=== PATIENT | female | born 1975 | race Caucasian/White ===

== ENCOUNTER → 2024-01-23 18:57 | Outpatient (REF) | payer BC, SELFPAY | LOC: MRI 18:57 | PROVIDERS: ATTENDING PHYSICIAN Psychiatry & Neurology Neurology; FAMILY PHYSICIAN Physician Assistant Medical | DX: G35 Multiple sclerosis (principal) | CPT/HCPCS: 70551; 72141 ==

== ENCOUNTER 2025-03-23 14:42 | Emergency (ER) | payer OTHER, SELFPAY ==
[2025-03-23 14:47] VITALS: BP 222/124
[2025-03-23] MEDS: DILAUDID 1 MG IV (15:30)
[2025-03-23] MEDS: DILAUDID 0.5 MG IM ×2 (16:20→16:58)
--- NOTE | 2025-03-23 16:43 | ED.GENMED ---
History of Present Illness
<Russell Kenny PA-C - Last Filed: 03/24/25 11:47>
General
Chief Complaint: Fall
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
Time Seen by Provider: 03/23/25 15:23
History of Present Illness
History of Present Illness:
49-year-old female with past medical history of MS, hypertension hyperlipidemia presenting to the emergency department for evaluation of severe pain and deformity to her right upper extremity after she slipped and fell and tried to catch herself on
the railing but her arm got caught in between the railing post and felt a snap in her upper arm describing it as if she has bones crunching in her arm. She denies any other injuries. Denies any focal weakness or numbness. No headaches, no LOC, no
vomiting or visual changes. Patient is not on any anticoagulant medication. She does not believe any medication was provided prior to arrival.
Past History
<Russell Kenny PA-C - Last Filed: 03/24/25 11:47>
Past History
ED Past Medical History: HTN, Hypercholesterolemia and Other (MS)
ED Past Surgical History: Cholecystectomy
Social History
Tobacco: Non-smoker
Alcohol: None
Drug: None
Personal:
Living: with family
Review of Systems
<Russell Kenny PA-C - Last Filed: 03/24/25 11:47>
Review of Systems
All Other Systems: ROS reviewed and negative except as documented in HPI and ROS
Phy Exam
<Russell Kenny PA-C - Last Filed: 03/24/25 11:47>
Physical Exam
Physical Exam:
GENERAL: Alert , appears in severe pain, difficult time sitting still
EYE: conjunctiva clear
Head: Normocephalic atraumatic
NECK: Supple,
ENT: mmm.
LUNGS: no acute respiratory distress
NEUROLOGICAL: Alert and oriented
SKIN: Warm and dry, skin intact.
MUSCULOSKELETAL: Patient has an easily palpable radial pulse. Cap refill less than 2 seconds and sensation is grossly intact to light touch of the right upper extremity. She does allow for range of motion of all digits and wrist but will not allow
for range of motion of her elbow or shoulder. The mid humeral region is firm but compartments are otherwise soft.
PSYCH: Normal and appropriate interaction.
Scores
<Russell Kenny PA-C - Last Filed: 03/24/25 11:47>
Heart Failure Risk
Heart Failure Risk Score: Not Applicable
Heart Score for Chest Pain Patients
STEMI patient?: Not applicable
Withdrawal Assessment of Alcohol
Withdrawal Assessment Completed?: Not applicable
Course
<Russell Kenny PA-C - Last Filed: 03/24/25 11:47>
Orders/Labs/Results
Orders:
Orders
03/23/25 15:27
HYDROmorphone [Dilaudid] 1 mg IV NOW STA
CR Elbow - Right Min 2 View Urgent
Reason For Exam: fall, deformity
CR Humerus - Right Min 2 View* Urgent
Comment:
Reason For Exam: fall, deformity
CR Shoulder, Trauma - Right Urgent
Comment:
Reason For Exam: fall, deformity
03/23/25 16:09
Sling Right-Treatment ONCE
03/23/25 16:17
HYDROmorphone [Dilaudid] 0.5 mg IM NOW STA
03/23/25 16:51
HYDROmorphone [Dilaudid] 0.5 mg IV NOW STA
03/23/25 16:52
HYDROmorphone [Dilaudid] 0.5 mg IM NOW STA
Vital Signs
Initial and Last Documented VS:
Initial Vital Signs
Temp Pulse Resp BP Pulse Ox
98 F 78 16 222/124 97
03/23/25 14:47 12/14/25 14:47 03/23/25 14:47 03/23/25 14:47 03/23/25 14:47
Last Documented Vital Signs
Temp Pulse Resp BP Pulse Ox
98 F 76 18 149/97 97
03/23/25 14:47 03/23/25 17:01 03/23/25 17:01 03/23/25 17:01 03/23/25 17:01
<Gamaliel Sylvester MD - Last Filed: 03/23/25 16:49>
Orders/Labs/Results
Orders:
Orders
03/23/25 15:27
HYDROmorphone [Dilaudid] 1 mg IV NOW STA
CR Elbow - Right Min 2 View Urgent
Reason For Exam: fall, deformity
CR Humerus - Right Min 2 View* Urgent
Comment:
Reason For Exam: fall, deformity
CR Shoulder, Trauma - Right Urgent
Comment:
Reason For Exam: fall, deformity
03/23/25 16:09
Sling Right-Treatment ONCE
03/23/25 16:17
HYDROmorphone [Dilaudid] 0.5 mg IM NOW STA
03/23/25 16:51
HYDROmorphone [Dilaudid] 0.5 mg IV NOW STA
03/23/25 16:52
HYDROmorphone [Dilaudid] 0.5 mg IM NOW STA
Vital Signs
Initial and Last Documented VS:
Initial Vital Signs
Temp Pulse Resp BP Pulse Ox
98 F 78 16 222/124 97
03/23/25 14:47 03/23/25 14:47 03/23/25 14:47 03/23/25 14:47 03/23/25 14:47
Last Documented Vital Signs
Temp Pulse Resp BP Pulse Ox
98 F 76 18 149/97 97
03/23/25 14:47 03/23/25 17:01 03/23/25 17:01 03/23/25 17:01 03/23/25 17:01
Procedures
<Russell Kenny PA-C - Last Filed: 03/24/25 11:47>
Splinting/Sling Placement
Right Upper Arm:
Procedure completed by: Efraín/Higinio
Pre-splint extermity exam: neurovascular intact
Type of splint: posterior long arm and other (coaptation splint)
Splint material: other (4in orthoglass)
Splint checked by provider?: Yes
Type of sling: sling fitted
Normal distal neurovascular exam?: Yes
<Russell Kenny PA-C - Last Filed: 03/24/25 11:47>
MDM/Problems Addressed
Differential Diagnosis Includes:
Clinical concern for humerus fracture
Dislocation
Sprain
MDM/Problems Addressed:
49-year-old female presenting to the ER for evaluation after significant injury to her right upper extremity. X-rays ordered. Dilaudid for pain control. Disposition pending.
<Russell Kenny PA-C - Last Filed: 03/24/25 11:47>
*Radiology
Radiology exam reviewed: preliminary read by ED provider (Midshaft humerus fracture)
*Pulse Oximetry
SaO2: 97
Oxygen Mode of Delivery: Room air
Patient hypoxic: no
*Critical Care Note
Total Time (30-74mins, 75-104mins- exclusive of procedures): Not Applicable
<Russell Kenny PA-C - Last Filed: 03/24/25 11:47>
Patient Management
Discussion with other providers: Unloading Checker
Escalation/DeEscalation of care consider admission/obs:
Case was discussed with on-call orthopedic surgeon, Dr. Cruz, agrees with splint plan and can follow-up in office this week with upper extremity specialist. Prescription sent to pharmacy for pain control. Patient aware of return precautions to
the ER.
ED Attending Note
<Russell Kenny PA-C - Last Filed: 03/24/25 11:47>
-
Portions of this chart may have been created with voice recognition software.� Occasional wrong word or��sound alike� substitutions may have occurred due to the inherent limitations of voice recognition software.
<Gamaliel Sylvester MD - Last Filed: 03/23/25 16:49>
ED Attending Note
Patient seen and examined by attending physician: Yes
ED Attending Note:
I have seen and evaluated the patient with a [id number] encounter. I have spoken to the advance practicer provider and involved in the medical history, the physical exam, medical decision making.
Evaluation and management service: agree unless noted differently below.
Results interpretation: agree unless noted differently below.
Focused HPI: 49-year-old female with history as noted presents after slip and fall with right upper arm injury. No other injuries or complaints, no blood thinners.
Physical exam: Awake and alert, appears uncomfortable. Markedly hypertensive likely pain related but rest of vitals normal. No signs of trauma to the head. She is obvious tenderness and deformity of the right upper arm but intact right radial
pulse, motor and sensory intact distal right upper extremity radial, median, ulnar nerve distribution.
Medical Decision Makin-year-old female presents with a right upper arm injury. X-rays confirmed right humerus fracture. CANDE discussed the case with orthopedist who recommended placing a coaptation splint and patient to be discharged with plan
for outpatient follow-up. Patient placed in splint as documented in procedure note. Sling applied. Stable for discharge. Spoke about follow-up plan and return precautions and all questions answered.
Discharge Plan
Departure
Patient Disposition: Home (Routine Discharge)
Date of Disposition: 03/23/25
Time of Disposition: 16:43
Patient with high blood pressure during this ER visit?: Yes
Discharge Problem:
Closed right humeral fracture
Instructions: Upper Arm Fracture ED
Prescriptions:
New
oxycodone-acetaminophen [Percocet] 5-325 mg tablet
1 tab PO Q6HPRN PRN (Reason: pain) Qty: 15 0RF
No Action
ibuprofen [Advil Liqui-Gel] 200 MG capsule
200 mg PO TIDPRN PRN (Reason: pain)
lisinopril 10 MG tablet
10 mg PO DAILY
atorvastatin 10 MG tablet
10 mg PO DAILY
lorazepam 1 MG tablet
1 mg PO DAILY PRN (Reason: anxiety)
Referrals:
Ebonie Chris PA [Family Provider, Family Practice]
Darwin Loew MD [Active, Orthopedics]
Referral Note: Please call for appointment time tomorrow
Interventions
Interventions:
*Risk Screen - Suicide Last Done: 03/23/25 14:52
*Neglect/Abuse Screening Last Done: 03/23/25 14:52
*Nursing Disposition Last Done: 03/23/25 17:03
ED-Musculoskeletal Assessment Last Done: 03/23/25 15:00
ED- Neurological Assessment Last Done: 03/23/25 15:00
ED-Skin Assessment Last Done: 03/23/25 15:00
Discharge Date and Time
Discharge Date/Time: 03/23/25 17:04
Print Language: [place]
[2025-03-23 17:01] VITALS: BP 149/97
== END 2025-03-23 17:04 | disposition home or self-care (01) ==
LOC: EMR 14:42
PROVIDERS: EMERGENCY PHYSICIAN Emergency Medicine; FAMILY PHYSICIAN Physician Assistant Medical
DX: S42.351A Displaced comminuted fracture of shaft of humerus, right arm, initial encounter for closed fracture (principal); W01.0XXA Fall on same level from slipping, tripping and stumbling without subsequent striking against object, initial encounter; E78.00 Pure hypercholesterolemia, unspecified; G35.D Multiple sclerosis, unspecified; I10 Essential (primary) hypertension
CPT/HCPCS: 29105; 96374; 96372; 99284; 73030; 73060; 73070

== ENCOUNTER 2025-03-26 06:17 | Day surgery (SDC) | payer OTHER, SELFPAY ==
[2025-03-26] VITALS (9 sets, daily range): BP systolic 119–191; BP diastolic 74–111; BMI 33.7
[2025-03-26] MEDS: CELEBREX 200 MG PO (13:49)
[2025-03-26] MEDS: NORMOSOL-R/PLASMALYTE-A 1000 IV (14:01)
== END 2025-03-26 21:20 | disposition home or self-care (01) ==
LOC: SDS 06:17
PROVIDERS: ATTENDING PHYSICIAN Orthopaedic Surgery Hand Surgery
DX: S42.201A Unspecified fracture of upper end of right humerus, initial encounter for closed fracture (principal); X58.XXXA Exposure to other specified factors, initial encounter
CPT/HCPCS: 24515; C1713; 73060; 76000